=== PATIENT | female | born 1950 | race Caucasian/White ===

== ENCOUNTER 2019-06-16 07:41 | Day surgery (SDC) | payer MEDICARE, OTHER ==
[~2019-06-16 07:41] MED LIST: Midazolam 1 MG/ML 2 ML SDV ONE; Propofol 200 MG/20 ML SDV ONE; fentaNYL 100 MCG/2 ML SDV ONE
[2019-06-16] MEDS ORDERED: Lactated Ringers 1,000 ML IV SCH (08:00)
[2019-06-16] MEDS ORDERED: Propofol 200 MG/20 ML SDV ONE (09:30)
[2019-06-16 10:42] VITALS: BP 155/68; PULSE 81
--- NOTE | 2019-06-16 12:12 | OR ---
DATE OF PROCEDURE: 06/16/2019 SURGEON: Chucho Adams MD PREOPERATIVE DIAGNOSES: Blood in stool and strong family history of colon cancer in father. POSTOPERATIVE DIAGNOSES: 1. Diverticulosis. 2. Blood in stool, etiology unknown. 3. Strong family history of colon cancer in father. PROCEDURE: Colonoscopy to the cecum. ANESTHESIA: IV anesthesia with monitored anesthesia care. INDICATION: This 68-year-old white female is here for a colonoscopy. She has had some blood in her stool. Her father had colon cancer. Her last colonoscopic exam she says was done 4 years ago. I counseled her for the procedure including risks and alternatives, and she gave her informed consent to proceed. DESCRIPTION OF PROCEDURE: The patient was placed in the left lateral decubitus position. IV anesthesia was administered by the Anesthesia Service. Time-out was held. A rectal exam was performed, which was unremarkable. The flexible video Olympus colonoscope was introduced through her anus, up her rectum, out her colon, all way to the cecum. En route, in the left and sigmoid colon areas, we saw a few scattered diverticula. There was no bleeding or inflammation associated with them. Once the cecum was reached, the scope was slowly withdrawn examining the mucosa throughout. No additional mucosal abnormalities were noted. No neoplastic lesions were seen. The scope was retroflexed in the rectum with the distal rectum appearing unremarkable. The scope was straightened and removed. She tolerated the procedure well. Chucho Adams MD /[id number]
== END 2019-06-16 10:55 | disposition home or self-care (01) ==
LOC: JP.SDS 07:41
PROVIDERS: ATTEND Surgery
DX: K57.31 Diverticulosis of large intestine without perforation or abscess with bleeding (principal); K21.9 Gastro-esophageal reflux disease without esophagitis; E66.9 Obesity, unspecified; Z80.0 Family history of malignant neoplasm of digestive organs; Z88.2 Allergy status to sulfonamides; Z88.3 Allergy status to other anti-infective agents; Z68.35 Body mass index [BMI] 35.0-35.9, adult
CPT/HCPCS: J2250; J2704; J3010; J7120